=== PATIENT | male | born 1950 | race Two or more races ===

== ENCOUNTER 2020-01-30 08:41 | Outpatient (CLI) | payer OTHER | END 2020-01-30 08:57 | disposition home or self-care (01) | LOC: NUCLEAR 08:41 | PROVIDERS: ATTEND Urology | DX: C61 Malignant neoplasm of prostate (principal) | CPT/HCPCS: 78803; A9503 ==

== ENCOUNTER 2020-02-04 09:22 | Outpatient (CLI) | payer OTHER | END 2020-02-04 09:31 | disposition home or self-care (01) | LOC: TOM 09:22 | PROVIDERS: ATTEND Urology | DX: K57.90 Diverticulosis of intestine, part unspecified, without perforation or abscess without bleeding (principal); C61 Malignant neoplasm of prostate | CPT/HCPCS: 74178; Q9965 ==